=== PATIENT | female | born 2000 | race African-American/Black ===

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

== ENCOUNTER 2022-11-28 10:34 | Emergency (ER) | payer OTHER ==
[~2022-11-28] VITALS: Ht 167.6 cm; Wt 122.5 kg
[2022-11-28] MEDS ORDERED: CLINDAMYCIN HC300 MG PO (11:24)
[2022-11-28 11:35] LABS: BASO # 0.1 10*3/uL (0.0-0.1); BASO % 0.6 % (0.0-1.0); EOS # 0.1 10*3/uL (0.0-0.4); HEMATOCRIT 43.3 % (37.0-47.0); LYMPH # 2.7 10*3/uL (1.3-4.4); LYMPH % 25.8 % (27.0-41.0); MEAN CELL VOLUME 91.4 fl (81.0-99.0); MEAN CORPUSCULAR HGB 30.6 pg (27.0-31.0); MEAN CORPUSCULAR HGB CONC 33.5 g/dl (33.0-37.0); MEAN PLATELET VOLUME 11.6 fl (9.6-12.3); MONO # 0.7 10*3/uL (0.1-1.0); MONO % 7.1 % (3.0-9.0); NEUT # 6.7 10*3/uL (2.3-7.9); NEUT % 65.2 % (47.0-73.0); PLATELET COUNT AUTOMATED 297 10*3/uL (130-400); RED BLOOD COUNT 4.74 10*6/uL (4.10-5.10); RED CELL DISTRI WIDTH 11.7 % (0-14.5); WHITE BLOOD COUNT 10.3 10*3/uL (4.8-10.8)
[2022-11-28 12:00] LABS: ALKALINE PHOSPHATASE 55 U/L (46-116); BUN 6 mg/dl (9-23); CHLORIDE 104 mmol/L (98-107); POTASSIUM 4.2 mmol/L (3.4-5.1); SGPT/ALT 22 U/L (10-49); TOTAL PROTEIN 7.6 gm/dL (6.0-8.0)
== END 2022-11-28 12:25 | disposition home or self-care (01) ==
LOC: ED 10:34
PROVIDERS: Emergency Medicine
DX: J02.9 Acute pharyngitis, unspecified (principal); T36.8X5A Adverse effect of other systemic antibiotics, initial encounter; L29.9 Pruritus, unspecified; Y92.89 Other specified places as the place of occurrence of the external cause; Z88.2 Allergy status to sulfonamides